=== PATIENT | female | born 1975 | race Caucasian/White ===

== ENCOUNTER 2018-03-10 08:17 | Emergency (ER) | payer SELFPAY ==
[2018-03-10 09:09] LABS: ADD MAN DIFF? NO
[2018-03-10 09:12] LABS: WHITE BLOOD COUNT 2.9 10^3/ul (4.8-10.8)
[2018-03-10 09:12] LABS: ABNORMAL IP MESSAGE 1; BASOPHILS % 0.3 % (0.0-2.0); EOSINOPHILS # 0.1 10^3/ul (0.0-0.5); EOSINOPHILS % 3.4 % (0.0-7.0); HEMATOCRIT 29.3 % (37.0-47.0); HEMOGLOBIN 9.2 g/dl (12.0-16.0); LYMPHOCYTES # 1.7 10^3/ul (0.8-2.9); LYMPHOCYTES % 57.3 % (15.0-51.0); MEAN CORPUSCULAR HEMOGLOBIN 28.3 pg (29.0-33.0); MEAN CORPUSCULAR HGB CONC 31.4 g/dl (32.0-37.0); MEAN CORPUSCULAR VOLUME 90.2 fl (82.0-101.0); MEAN PLATELET VOLUME 9.4 fl (7.4-10.4); MONOCYTE # 0.4 10^3/ul (0.3-0.9); MONOCYTES % 12.6 % (0.0-11.0); NEUTROPHIL # 0.8 10^3/ul (1.6-7.5); NEUTROPHILS % 26.4 % (39.0-77.0); PLATELET COUNT 252 10^3/UL (140-415); RED BLOOD COUNT 3.25 10^6/ul (4.20-5.40); RED CELL DISTRIBUTION WIDTH 15.6 % (11.5-14.5)
[2018-03-10 09:14] LABS: POSITIVE DIFF @See below
[2018-03-10 09:27] LABS: ANION GAP 5 (8-16)
[2018-03-10 09:31] LABS: BLOOD UREA NITROGEN 8 mg/dl (7-20); CALCIUM 10.2 mg/dl (8.4-10.2); CARBON DIOXIDE 30 mmol/L (21-31); CHLORIDE 107 mmol/L (97-110); CREATININE 0.77 mg/dl (0.44-1.00); GLUCOSE 128 mg/dl (70-220); SODIUM 138 mmol/L (135-144)
[2018-03-10] MEDS: SOD CHLORIDE 0.9% 1,000 ML IV (09:49)
== END 2018-03-10 13:08 | disposition home or self-care (01) ==
LOC: E/R 08:17
DX: R55 Syncope and collapse (principal); F41.9 Anxiety disorder, unspecified
CPT/HCPCS: 36415; 80048; 84484; 85025; 93005; 99284-25